=== PATIENT | male | born 1975 | race African-American/Black ===

== ENCOUNTER 2024-12-20 09:23 | Emergency (ER) | payer SELFPAY ==
[~2024-12-20] VITALS: Ht 172.7 cm; Wt 73.0 kg
[2024-12-20 09:32] VITALS: BP 137/94; PULSE 89; RESP 16; TEMP 37; O2SAT 98
== END 2024-12-20 10:38 ==
LOC: ER 10:35
DX: S01.111A Laceration without foreign body of right eyelid and periocular area, initial encounter (principal); X58.XXXA Exposure to other specified factors, initial encounter; Y93.89 Activity, other specified; Y92.89 Other specified places as the place of occurrence of the external cause; Y99.8 Other external cause status
CPT/HCPCS: 12011; 99283; Z7610 ×2